=== PATIENT | male | born 1945 | race Caucasian/White ===

== ENCOUNTER 2016-02-24 14:56 | Inpatient (IN) | payer BC ==
[~2016-02-24] VITALS: Ht 177.8 cm; Wt 77.2 kg
[2016-02-24 15:39] LABS: EOSINOPHILS # (AUTO) 0.1 /CMM (0.0-0.7); HEMOGLOBIN 9.3 g/dL (13.5-17.5); MEAN CORPUSCULAR HEMOGLOBIN 28 PG (26.0-33.0); NEUTROPHILS # (AUTO) 12.9 /CMM (1.8-8.9)
[2016-02-24 15:43] LABS: BASOPHILS # (AUTO) 0.2 /CMM (0.0-0.2); BASOPHILS % (AUTO) 1.1 % (0.0-2.0); DIFF TOTAL % 100 %; EOSINOPHILS % (AUTO) 0.8 % (0.0-6.0); HEMATOCRIT 28 % (39-51); LYMPHOCYTES # (AUTO) 0.7 /CMM (0.8-4.8); LYMPHOCYTES % (AUTO) 4.9 % (20.0-44.0); MEAN CORPUSCULAR HGB CONC 33 g/dl (31.0-36.0); MEAN CORPUSCULAR VOLUME 84 fL (80-96); MONOCYTES # (AUTO) 1.4 /CMM (0.1-1.30); MONOCYTES % (AUTO) 9.1 % (2.0-12.0); NEUTROPHILS % (AUTO) 84.1 % (43.0-81.0); PLATELET COUNT (AUTO) 102 /CMM (150-450); RED BLOOD CELL COUNT(AUTO) 3.38 MIL/uL (4.5-6.0); WHITE BLOOD COUNT (AUTO) 15.3 K/uL (4.3-11.0)
[2016-02-24 15:54] LABS: ALANINE AMINOTRANSFERASE 31 U/L (12-78); ALBUMIN 2.6 g/dL (3.4-5.0); ANION GAP 5 (5-14); ASPARTATE AMINOTRANSFERASE 35 U/L (15-37); BILIRUBIN,DIRECT 0.4 mg/dL (0.0-0.2); BILIRUBIN,TOTAL 1.2 mg/dL (0.2-1.0); CALCIUM, SERUM 8.2 mg/dL (8.5-10.1); CARBON DIOXIDE 35 mmol/L (21-32); CHLORIDE 103 mmol/L (98-107); CREATININE 0.6 mg/dL (0.6-1.3); GFR 134 mL/min (>60); GLUCOSE 89 mg/dL (74-106); INDIRECT BILIRUBIN 0.8 mg/dL (0.0-1.1); POTASSIUM 3.2 mmol/L (3.5-5.1); SODIUM SERUM 140 mmol/L (136-145); TOTAL PROTEIN, SERUM 5.9 g/dL (6.4-8.2); UREA NITROGEN, BLOOD 15 mg/dL (7-18)
[2016-02-24 15:56] LABS: INR 1.34 (0.87-1.13); PROTHROMBIN TIME 14.1 SECS (9.5-12.7)
[2016-02-24 15:57] LABS: TROPONIN I < 0.017 ng/mL (0.00-0.056)
[2016-02-24] MEDS ORDERED: ALBUTEROL FS 2.5 MG/3 ML VIAL.NEB NEB ONE (16:00)
[2016-02-24] MEDS ORDERED: methylPREDNISolone SOD SUCC 125 MG/2ML VIAL IV ONE (16:00)
[2016-02-24] MEDS ORDERED: methylPREDNISolone SOD SUCC 125 MG/2ML VIAL ONE (16:04)
[2016-02-24] MEDS ORDERED: ALBUTEROL FS 2.5 MG/3 ML VIAL.NEB ONE (16:05)
[2016-02-24] MEDS ORDERED: ONDANSETRON HCL/PF 4 MG/2 ML VIAL IVP PRN (17:00)
[2016-02-24] MEDS ORDERED: MAG HYDROX/AL HYDROX/SIMETH 30 ML UDC PO PRN (17:00)
[2016-02-24] MEDS ORDERED: MAGNESIUM HYDROXIDE 30 ML UDC PO PRN (17:00)
[2016-02-24] MEDS ORDERED: ALBUTEROL FS 2.5 MG/0.5 ML VIAL.NEB NEB PRN (17:00)
[2016-02-24] MEDS ORDERED: Z GUARD REMEDY 2 OZ OINT TP PRN (17:00)
[2016-02-24] MEDS ORDERED: ZOLPIDEM TARTRATE 5 MG TABLET PO PRN (17:00)
[2016-02-24] MEDS ORDERED: ACETAMINOPHEN 325 MG TABLET PO PRN (17:00)
[2016-02-24] MEDS ORDERED: HYDROCODONE/APAP 5/325MG 1 EACH TABLET PO PRN ×2 (17:00→22:30)
[2016-02-24 17:15] LABS: ANISOCYTOSIS 1+; LYMPHOCYTES % (MANUAL) 5 % (16-48); PLATELET ESTIMATE DECREASED
[2016-02-24 17:20] LABS: ABG BASE EXCESS 9.6 mmol/L; ABG HCO3 34.1 mmol/L; ABG PCO2 46.5 mmHg (35.0-45.0); ABG PH 7.483 (7.350-7.450); ABG PO2 65.6 mmHg (75.0-100.0); ABG TOTAL HEMOGLOBIN 9.8 G/dL (13.5-18.0); ALLEN TEST Pass; AaDO2 93.7 mmHg; O2Hb 91.4 % (94.0-97.0)
[2016-02-24] MEDS ORDERED: FURO20TA4 PO (17:50)
[2016-02-24] MEDS ORDERED: RIVA10TA PO (17:50)
[2016-02-24] MEDS ORDERED: POTA20TA83 PO (17:50)
[2016-02-24] MEDS ORDERED: TIOT18CA3 IH (17:50)
[2016-02-24] MEDS ORDERED: LOSA1TAB36 PO (17:50)
[2016-02-24] MEDS ORDERED: HYDR-3326 PO (17:50)
[2016-02-24] MEDS ORDERED: AMOX1TAB16 PO (17:50)
[2016-02-24] MEDS ORDERED: TRAM50TA2 PO (17:50)
[2016-02-24] MEDS ORDERED: ALBU2.5V12 IH (17:50)
[2016-02-24] MEDS ORDERED: FLUT1DIS5 IH (17:50)
[2016-02-24] MEDS ORDERED: DILT240C2 PO (17:50)
[2016-02-24] MEDS ORDERED: ALEN70TA45 PO (17:51)
[2016-02-24] MEDS ORDERED: IV SET PRIMARY PUMP SET 1 EA INFUS.SET MC ONE (18:07)
[2016-02-24] MEDS ORDERED: LEVOFLOXACIN 750 MG /D5W 150ML 150 ML IV ONE (18:07)
[2016-02-24] MEDS: LEVOFLOXACIN 750 MG /D5W 150ML 750 MG in PREMIX 1 EA IV SCH (18:10)
[2016-02-24] MEDS: FUROSEMIDE 40 MG/4 ML VIAL IV SCH (18:11)
[2016-02-24] MEDS ORDERED: FUROSEMIDE 40 MG/4 ML VIAL ONE (18:13)
[2016-02-24 19:45] VITALS: BP 115/69
[2016-02-24] MEDS: methylPREDNISolone SOD SUCC 125 MG/2ML VIAL IV SCH (20:38)
[2016-02-24 20:59] VITALS: BP 115/69
[2016-02-24] MEDS ORDERED: ENOXAPARIN SODIUM 40 MG/0.4 ML DISP.SYRIN SQ SCH (21:00)
[2016-02-24] MEDS ORDERED: TRAMADOL HCL 50 MG TABLET PO PRN (22:30)
[2016-02-24] MEDS ORDERED: ALENDRONATE 70 MG TABLET PO SCH (22:30)
[2016-02-24 22:36] LABS: THYROID STIMULATING HORMONE 0.275 uIU/mL (0.358-3.74)
[2016-02-25 00:38] VITALS: BP 120/70
[2016-02-25] MEDS: methylPREDNISolone SOD SUCC 125 MG/2ML VIAL IV SCH ×4 (00:55→17:41)
[2016-02-25 04:00] VITALS: BP 121/67
[2016-02-25] MEDS: FUROSEMIDE 40 MG/4 ML VIAL IV SCH (05:56)
[2016-02-25 06:54] VITALS: BP 121/70
[2016-02-25 08:00] VITALS: BP 107/64
[2016-02-25] MEDS: POTASSIUM CHLORIDE 20 MEQ TAB.PRT.SR PO SCH ×2 (08:36→17:38)
[2016-02-25] MEDS: PANTOPRAZOLE 40 MG TABLET.DR PO SCH (08:36)
[2016-02-25] MEDS: DILTIAZEM HCL CD 240 MG PO SCH (08:37)
[2016-02-25 08:44] LABS: DIFF TOTAL % 100 %; HEMATOCRIT 28 % (39-51); HEMOGLOBIN 9.3 g/dL (13.5-17.5); LYMPHOCYTES # (AUTO) 0.2 /CMM (0.8-4.8); LYMPHOCYTES % (AUTO) 3.2 % (20.0-44.0); MEAN CORPUSCULAR HEMOGLOBIN 28 PG (26.0-33.0); MEAN CORPUSCULAR HGB CONC 33 g/dl (31.0-36.0); MEAN CORPUSCULAR VOLUME 84 fL (80-96); MONOCYTES # (AUTO) 0.1 /CMM (0.1-1.30); MONOCYTES % (AUTO) 0.7 % (2.0-12.0); NEUTROPHILS % (AUTO) 96.1 % (43.0-81.0); PLATELET COUNT (AUTO) 111 /CMM (150-450); RED BLOOD CELL COUNT(AUTO) 3.35 MIL/uL (4.5-6.0); WHITE BLOOD COUNT (AUTO) 7.3 K/uL (4.3-11.0)
[2016-02-25] MEDS ORDERED: FUROSEMIDE 20 MG TABLET PO SCH (09:00)
[2016-02-25] MEDS ORDERED: FLUTICASONE/SALMETEROL DISKUS IH SCH (09:00)
[2016-02-25 09:21] LABS: CALCIUM, SERUM 7.9 mg/dL (8.5-10.1); CREATININE 0.8 mg/dL (0.6-1.3); PHOSPHORUS 2.3 mg/dL (2.5-4.9); POTASSIUM 3.3 mmol/L (3.5-5.1)
[2016-02-25 09:29] LABS: THYROID STIMULATING HORMONE 0.095 uIU/mL (0.358-3.74)
[2016-02-25] MEDS: FLUTICASONE/SALMETEROL DISKUS IH SCH ×2 (10:45→21:49)
[2016-02-25] MEDS ORDERED: K PHOS NEUTRAL 250 MG TABLET PO ONE ×2 (11:00→15:30)
[2016-02-25] MEDS: IPRATROPIUM NEB FS 0.5 MG/2.5 ML AMPUL.NEB NEB PRN ×3 (12:17→22:17)
[2016-02-25] MEDS: ALBUTEROL FS 2.5 MG/0.5 ML VIAL.NEB IH PRN ×3 (12:17→22:17)
[2016-02-25] MEDS ORDERED: SECONDARY IV SET 1 EA INFUS.SET MC ONE (13:58)
[2016-02-25] MEDS: SOD FERRIC GLUC 125 MG in IV NS 0.9% 100 ML IV SCH (14:04)
[2016-02-25 16:00] VITALS: BP 131/64
[2016-02-25] MEDS: RIVAROXABAN 10 MG TABLET PO SCH (17:40)
[2016-02-25] MEDS: LEVOFLOXACIN 750 MG /D5W 150ML 750 MG in PREMIX 1 EA IV SCH (18:27)
[2016-02-25 20:00] VITALS: BP 103/60
[2016-02-26] MEDS: methylPREDNISolone SOD SUCC 125 MG/2ML VIAL IV SCH ×4 (01:28→17:00)
[2016-02-26] MEDS: IPRATROPIUM NEB FS 0.5 MG/2.5 ML AMPUL.NEB NEB PRN ×2 (07:38→13:05)
[2016-02-26] MEDS: ALBUTEROL FS 2.5 MG/0.5 ML VIAL.NEB IH PRN ×2 (07:38→13:05)
[2016-02-26 07:39] LABS: CALCIUM, SERUM 7.6 mg/dL (8.5-10.1); CREATININE 0.8 mg/dL (0.6-1.3); PHOSPHORUS 2.6 mg/dL (2.5-4.9); POTASSIUM 3.5 mmol/L (3.5-5.1)
[2016-02-26 08:00] VITALS: BP 117/65
[2016-02-26] MEDS: POTASSIUM CHLORIDE 20 MEQ TAB.PRT.SR PO SCH ×2 (08:12→16:58)
[2016-02-26] MEDS: FLUTICASONE/SALMETEROL DISKUS IH SCH ×2 (08:12→22:02)
[2016-02-26] MEDS: FUROSEMIDE 20 MG TABLET PO SCH (08:13)
[2016-02-26] MEDS: DILTIAZEM HCL CD 240 MG PO SCH (08:13)
[2016-02-26] MEDS: PANTOPRAZOLE 40 MG TABLET.DR PO SCH (08:13)
[2016-02-26 12:34] LABS: DIFF TOTAL % 100 %; HEMATOCRIT 26 % (39-51); HEMOGLOBIN 8.4 g/dL (13.5-17.5); LYMPHOCYTES # (AUTO) 0.4 /CMM (0.8-4.8); LYMPHOCYTES % (AUTO) 3.3 % (20.0-44.0); MEAN CORPUSCULAR HEMOGLOBIN 28 PG (26.0-33.0); MEAN CORPUSCULAR HGB CONC 33 g/dl (31.0-36.0); MEAN CORPUSCULAR VOLUME 84 fL (80-96); MONOCYTES # (AUTO) 0.1 /CMM (0.1-1.30); MONOCYTES % (AUTO) 1.2 % (2.0-12.0); NEUTROPHILS # (AUTO) 10.3 /CMM (1.8-8.9); NEUTROPHILS % (AUTO) 95.5 % (43.0-81.0); PLATELET COUNT (AUTO) 120 /CMM (150-450); RED BLOOD CELL COUNT(AUTO) 3.03 MIL/uL (4.5-6.0); WHITE BLOOD COUNT (AUTO) 10.8 K/uL (4.3-11.0)
[2016-02-26] MEDS: SOD FERRIC GLUC 125 MG in IV NS 0.9% 100 ML IV SCH (13:34)
[2016-02-26] MEDS ORDERED: IV SET PRIMARY PUMP SET 1 EA INFUS.SET MC ONE (13:35)
[2016-02-26] MEDS ORDERED: IV NS 0.9% 0 ML IV ONE (13:36)
[2016-02-26] MEDS ORDERED: IV NS 0.9% 250 ML IV ONE (13:36)
[2016-02-26 13:51] LABS: LYMPHOCYTES % (MANUAL) 2 % (16-48); PLATELET ESTIMATE DECREASED
[2016-02-26 13:52] LABS: ANISOCYTOSIS 1+; HYPOCHROMASIA 1+
[2016-02-26 16:00] VITALS: BP 109/57
[2016-02-26] MEDS: LEVOFLOXACIN 750 MG /D5W 150ML 750 MG in PREMIX 1 EA IV SCH (16:58)
[2016-02-26] MEDS: RIVAROXABAN 10 MG TABLET PO SCH (16:59)
[2016-02-26 20:00] VITALS: BP 115/61
[2016-02-26 20:33] VITALS: BP 115/61
[2016-02-27] MEDS: methylPREDNISolone SOD SUCC 125 MG/2ML VIAL IV SCH ×3 (01:54→12:09)
[2016-02-27 04:00] VITALS: BP 120/61
[2016-02-27] MEDS: IPRATROPIUM NEB FS 0.5 MG/2.5 ML AMPUL.NEB NEB PRN (07:08)
[2016-02-27] MEDS: ALBUTEROL FS 2.5 MG/0.5 ML VIAL.NEB IH PRN (07:08)
[2016-02-27] MEDS: PANTOPRAZOLE 40 MG TABLET.DR PO SCH (07:30)
[2016-02-27 07:42] LABS: CALCIUM, SERUM 7.9 mg/dL (8.5-10.1); CREATININE 0.9 mg/dL (0.6-1.3); POTASSIUM 3.9 mmol/L (3.5-5.1)
[2016-02-27 08:00] VITALS: BP 141/76
[2016-02-27] MEDS: FUROSEMIDE 20 MG TABLET PO SCH (09:00)
[2016-02-27] MEDS: DILTIAZEM HCL CD 240 MG PO SCH (09:00)
[2016-02-27] MEDS: POTASSIUM CHLORIDE 20 MEQ TAB.PRT.SR PO SCH ×2 (09:00→17:00)
[2016-02-27] MEDS: FLUTICASONE/SALMETEROL DISKUS IH SCH (09:00)
[2016-02-27 10:00] VITALS: BP 141/76
[2016-02-27 16:00] VITALS: BP 132/65
[2016-02-27] MEDS: SOD FERRIC GLUC 125 MG in IV NS 0.9% 100 ML IV SCH (16:59)
[2016-02-27] MEDS: RIVAROXABAN 10 MG TABLET PO SCH (17:00)
[2016-02-27] MEDS: LEVOFLOXACIN 750 MG /D5W 150ML 750 MG in PREMIX 1 EA IV SCH (17:00)
== END 2016-02-27 17:49 | disposition home or self-care (01) | DRG 189 ==
LOC: ER 14:58 → TELE 18:05 → MED 02-25 09:10
PROC: 0DB68ZX Excision of Stomach, Via Natural or Artificial Opening Endoscopic, Diagnostic (ICD-10-PCS; principal; 2016-02-27 14:02)
DX: J96.20 Acute and chronic respiratory failure, unspecified whether with hypoxia or hypercapnia (principal); J44.1 Chronic obstructive pulmonary disease with (acute) exacerbation; I50.9 Heart failure, unspecified; E87.6 Hypokalemia; I25.10 Atherosclerotic heart disease of native coronary artery without angina pectoris; Z86.711 Personal history of pulmonary embolism; Z99.81 Dependence on supplemental oxygen; I48.91 Unspecified atrial fibrillation; D64.9 Anemia, unspecified; F03.90 Unspecified dementia, unspecified severity, without behavioral disturbance, psychotic disturbance, mood disturbance, and anxiety; I73.9 Peripheral vascular disease, unspecified; R07.9 Chest pain, unspecified; K44.9 Diaphragmatic hernia without obstruction or gangrene; K29.70 Gastritis, unspecified, without bleeding; I11.0 Hypertensive heart disease with heart failure
CPT/HCPCS: 36415; 36600; 71010-TC; 80048-TC; 80061-TC; 80076-TC; 82306; 82728-TC; 83540-TC; 83735-TC; 83880; 84100-TC; 84439-TC; 84443-TC; 84484-TC; 85025-TC; 85730-TC; 87040-TC; 87081-TC; 88305-TC; 88312-TC; 88313-TC; 88342; 93307-TC; 94799-TC; 97001-TC; A4216; A4606; J1650; J1940; J1956; J2916; J2930; J7030; J7050; Z7610